=== PATIENT | female | born 1995 | race American Indian/Alaskan Native ===

== ENCOUNTER 2017-11-24 16:26 | Emergency (ER) | payer MEDICAID ==
[2017-11-24 16:31] VITALS: BP 110/79
[2017-11-24 17:16] LABS: Bilirubin,Urine NEG (Negative); Blood,Urine NEG (Negative); Color,Urine Yellow (Yellow); Mucus,Urine FEW /HPF; Protein,Urine <15 mg/dL mg/dL (Negative); Urobilinogen,Urine < 2.0 mg/dL (<2.0)
--- NOTE | 2017-11-24 20:16 | Emergency Department Report ---
ED N/V/D HPI - General Chief complaint: Nausea/Vomiting/Diarrhea Stated complaint: FLU SX Time Seen by Provider: 11/24/17 20:07 Source: patient Mode of arrival: Ambulatory Limitations: No Limitations - History of Present Illness Initial comments: Patient reports nausea vomiting and diarrhea 5 days. She says she had 2 episode of vomiting today and 2 episodes of diarrhea stool. She cannot link her symptoms to any thing that she ate or drank. She reports fever and chills. Body ache at 6 out of 10, achy and worse with movement better with rest. Denies taking any medication. She states that she is able to tolerate some liquids. Denies any abdominal pain, vaginal bleeding or discharge. Denies any back pain. Denies any urinary burning, frequency or urgency. Patient reports she smokes marijuana with questioning in triage but when asked she says that her nausea vomiting and diarrhea is not related to symptoms he can she did not have any marijuana when symptoms started. MD complaint: nausea, vomiting, diarrhea, other (body ache) Onset/Timin -: days(s) Description of Vomiting: food contents Description of Diarrhea: water Associated Abdominal Pain: No Radiation: none Severity: moderate Pain Scale: 6 (generalized) Quality: aching Consistency: constant Improves with: rest Worsens with: eating Context: other (unknown) Associated Symptoms: myalgias, fever/chills, loss of appetite, malaise, nausea/ vomiting. denies: chest pain, cough, diaphoresis, headaches, rash, dysuria, shortness of breath, syncope, weakness - Related Data Previous Rx's Medication Instructions Recorded Last Taken Type Acetaminophen [Non-Aspirin Extra 500 mg PO Q6H PRN #12 tablet 11/24/17 Unknown Rx Strength] Dicyclomine [Bentyl] 20 mg PO QID 3 Days #12 tablet 11/24/17 Unknown Rx Ondansetron [Zofran Odt] 4 mg PO Q8H PRN #12 tab.rapdis 11/24/17 Unknown Rx Allergies Allergy/AdvReac Type Severity Reaction Status Date / Time No Known Allergies Allergy Unverified 11/24/17 16:31 ED Review of Systems ROS: Stated complaint: FLU SX Other details as noted in HPI Comment: All other systems reviewed and negative Constitutional: chills, fever, malaise Eyes: denies: eye pain, eye discharge ENT: denies: ear pain, throat pain, dental pain, congestion Respiratory: no symptoms reported Cardiovascular: denies: chest pain, palpitations, dyspnea on exertion, edema, syncope, paroxysmal nocturnal dyspnea Gastrointestinal: nausea, vomiting, diarrhea. denies: abdominal pain, constipation, hematemesis, melena, hematochezia Genitourinary: denies: urgency, dysuria, frequency, hematuria, discharge, abnormal menses Musculoskeletal: myalgia. denies: back pain, joint swelling, arthralgia Skin: denies: rash Neurological: denies: headache, numbness, paresthesias, confusion, abnormal gait , vertigo ED Past Medical Hx - Past Medical History Previous Medical History?: No - Surgical History Past Surgical History?: No - Family History Family history: no significant - Social History Smoking Status: Never Smoker Substance Use Type: Marijuana - Medications Home Medications: Home Medications Medication Instructions Recorded Confirmed Last Taken Type Acetaminophen [Non-Aspirin Extra 500 mg PO Q6H PRN #12 tablet 11/24/17 Unknown Rx Strength] Dicyclomine [Bentyl] 20 mg PO QID 3 Days #12 tablet 11/24/17 Unknown Rx Ondansetron [Zofran Odt] 4 mg PO Q8H PRN #12 tab.rapdis 11/24/17 Unknown Rx ED Physical Exam - General Limitations: No Limitations General appearance: alert, in no apparent distress - Head Head exam: Present: atraumatic, normocephalic, normal inspection, other (normal exam) - Eye Eye exam: Present: normal appearance, PERRL, EOMI. Absent: scleral icterus, conjunctival injection, nystagmus Pupils: Present: normal accommodation - ENT ENT exam: Present: normal exam, normal orophraynx, mucous membranes moist, TM's normal bilaterally, normal external ear exam - Neck Neck exam: Present: normal inspection, full ROM, other (no C-spine tenderness). Absent: tenderness, meningismus, lymphadenopathy, thyromegaly - Respiratory Respiratory exam: Present: normal lung sounds bilaterally. Absent: respiratory distress, chest wall tenderness, accessory muscle use - Cardiovascular Cardiovascular Exam: Present: regular rate, normal rhythm, normal heart sounds - GI/Abdominal GI/Abdominal exam: Present: soft, normal bowel sounds. Absent: distended, tenderness, guarding, rebound, rigid, organomegaly, mass, bruit, pulsatile mass , hernia - Extremities Exam Extremities exam: Present: normal inspection, full ROM, normal capillary refill , other (no clubbing, cyanosis or edema. +2 pulses to all extremities and no neurovascular compromise). Absent: tenderness, pedal edema, joint swelling, calf tenderness - Back Exam Back exam: Present: normal inspection, full ROM, other (ambulates without any difficulties). Absent: tenderness, CVA tenderness (R), CVA tenderness (L), muscle spasm, paraspinal tenderness, vertebral tenderness, rash noted - Neurological Exam Neurological exam: Present: alert, oriented X3, normal gait, reflexes normal. Absent: motor sensory deficit - Psychiatric Psychiatric exam: Present: normal affect, normal mood - Skin Skin exam: Present: warm, dry, intact, normal color. Absent: rash ED Course Vital Signs 11/24/17 16:28 Temperature 99.1 F Pulse Rate 100 H Respiratory 16 Rate Blood Pressure 110/79 O2 Sat by Pulse 99 Oximetry - Reevaluation(s) Reevaluation #1: 11/24/17 21:00 Patient received Tylenol 975 mg by mouth for fever, Toradol 30 mg IV for body ache, Reglan 10 mg IV for nausea, Zofran 4 mg ODT and normal saline 1 L IV bolus and emergency room. Reevaluation #2: 11/24/17 21:55 Patient reports that she is feeling better. Mercer screen is negative and she is poorly hydrated and tolerated 2 cups of cranberry juice without any difficulties. ED Medical Decision Making - Lab Data Result diagrams: 11/24/17 20:34 11/24/17 20:34 Temp Pulse Resp BP Pulse Ox 99.1 F 100 H 16 110/79 99 11/24/17 16:28 11/24/17 16:28 11/24/17 16:28 11/24/17 16:28 11/24/17 16:28 Lab Results 11/24/17 11/24/17 11/24/17 Range/Units 20:34 20:34 20:34 WBC 7.9 (4.5-11.0) K/mm3 RBC 4.74 (3.65-5.03) M/mm3 Hgb 12.3 (10.1-14.3) gm/dl Hct 38.9 (30.3-42.9) % MCV 82 (79-97) fl MCH 26 L (28-32) pg MCHC 32 (30-34) % RDW 16.4 H (13.2-15.2) % Plt Count 269 (140-440) K/mm3 Lymph % (Auto) 18.8 (13.4-35.0) % Mercer % (Auto) 11.6 H (0.0-7.3) % Eos % (Auto) 0.5 (0.0-4.3) % Baso % (Auto) 0.4 (0.0-1.8) % Lymph # 1.5 (1.2-5.4) K/mm3 Mercer # 0.9 H (0.0-0.8) K/mm3 Eos # 0.0 (0.0-0.4) K/mm3 Baso # 0.0 (0.0-0.1) K/mm3 Seg Neutrophils % 68.7 (40.0-70.0) % Seg Neutrophils # 5.4 (1.8-7.7) K/mm3 Sodium 139 (137-145) mmol/L Potassium 3.9 (3.6-5.0) mmol/L Chloride 99.4 (98-107) mmol/L Carbon Dioxide 23 (22-30) mmol/L Anion Gap 21 mmol/L BUN 7 (7-17) mg/dL Creatinine 0.7 (0.7-1.2) mg/dL Estimated GFR > 60 ml/min BUN/Creatinine Ratio 10 % Glucose 93 (65-100) mg/dL Calcium 8.8 (8.4-10.2) mg/dL Total Bilirubin 0.50 (0.1-1.2) mg/dL Direct Bilirubin < 0.2 (0-0.2) mg/dL Indirect Bilirubin 0.3 mg/dL AST 14 (5-40) units/L ALT 7 (7-56) units/L Alkaline Phosphatase 86 (35-129) units/L Total Protein 7.9 (6.3-8.2) g/dL Albumin 4.1 (3.9-5) g/dL Albumin/Globulin Ratio 1.1 % Lipase 16 (13-60) units/L HCG, Qual Negative (Negative) Urine Color (Yellow) Urine Turbidity (Clear) Urine pH (5.0-7.0) Ur Specific [place] (1.003-1.030) Urine Protein (Negative) mg/dL Urine Glucose (UA) (Negative) mg/dL Urine Ketones (Negative) mg/dL Urine Blood (Negative) Urine Nitrite (Negative) Urine Bilirubin (Negative) Urine Urobilinogen (<2.0) mg/dL Ur Leukocyte Esterase (Negative) Urine WBC (Auto) (0.0-6.0) /HPF Urine RBC (Auto) (0.0-6.0) /HPF U Epithel Cells (Auto) (0-13.0) /HPF Urine Mucus /HPF Monoscreen (Negative) 11/24/17 11/24/17 Range/Units 20:34 Unknown WBC (4.5-11.0) K/mm3 RBC (3.65-5.03) M/mm3 Hgb (10.1-14.3) gm/dl Hct (30.3-42.9) % MCV (79-97) fl MCH (28-32) pg MCHC (30-34) % RDW (13.2-15.2) % Plt Count (140-440) K/mm3 Lymph % (Auto) (13.4-35.0) % Mercer % (Auto) (0.0-7.3) % Eos % (Auto) (0.0-4.3) % Baso % (Auto) (0.0-1.8) % Lymph # (1.2-5.4) K/mm3 Mercer # (0.0-0.8) K/mm3 Eos # (0.0-0.4) K/mm3 Baso # (0.0-0.1) K/mm3 Seg Neutrophils % (40.0-70.0) % Seg Neutrophils # (1.8-7.7) K/mm3 Sodium (137-145) mmol/L Potassium (3.6-5.0) mmol/L Chloride (98-107) mmol/L Carbon Dioxide (22-30) mmol/L Anion Gap mmol/L BUN (7-17) mg/dL Creatinine (0.7-1.2) mg/dL Estimated GFR ml/min BUN/Creatinine Ratio % Glucose (65-100) mg/dL Calcium (8.4-10.2) mg/dL Total Bilirubin (0.1-1.2) mg/dL Direct Bilirubin (0-0.2) mg/dL Indirect Bilirubin mg/dL AST (5-40) units/L ALT (7-56) units/L Alkaline Phosphatase (35-129) units/L Total Protein (6.3-8.2) g/dL Albumin (3.9-5) g/dL Albumin/Globulin Ratio % Lipase (13-60) units/L HCG, Qual (Negative) Urine Color Yellow (Yellow) Urine Turbidity Clear (Clear) Urine pH 6.0 (5.0-7.0) Ur Specific [place] 1.012 (1.003-1.030) Urine Protein <15 mg/dl (Negative) mg/dL Urine Glucose (UA) Neg (Negative) mg/dL Urine Ketones 20 (Negative) mg/dL Urine Blood Neg (Negative) Urine Nitrite Neg (Negative) Urine Bilirubin Neg (Negative) Urine Urobilinogen < 2.0 (<2.0) mg/dL Ur Leukocyte Esterase Sm (Negative) Urine WBC (Auto) 5.0 (0.0-6.0) /HPF Urine RBC (Auto) 2.0 (0.0-6.0) /HPF U Epithel Cells (Auto) 10.0 (0-13.0) /HPF Urine Mucus Few /HPF Monoscreen Negative (Negative) Urine culture pending - Medical Decision Making ED course: Pt report nausea vomiting and diarrhea 5 days. She reports she smokes more Lindsay but denies any marijuana in the last 5 days or prior to that. Patient found to have acute nausea and vomiting, diarrhea unknown cause. Her lab work are stable except she has leukocyte Estrace in her urine but not any urinary symptoms. She received Reglan 10 mg IV and Zofran 4 g ODT to manage nausea, 1 L of normal saline IV and was orally challenged after without any nausea vomiting or diarrhea. She received Toradol 30 mg IV for pain and Tylenol 975 mg by mouth for fever. Mercer screen is also negative. Please refer to laboratory section for details plan CBC, chemistry and urinalysis. Urine culture sent and pending. I discussed the patient and that she has gastroenteritis which is an inflammation of her stomach lining and I will put her on medication to include nausea medication and medication for stomach upset and also to help with her body aches. Patient voiced understanding in and she felt better after treatment. Discharged home to follow-up with her primary care physician in 2 days and I told her she does not have a primary care physician she needs to follow up at this [facility]. She was given prescription for Bentyl, Zofran and Tylenol. Critical care attestation.: If time is entered above; I have spent that time in minutes in the direct care of this critically ill patient, excluding procedure time. ED Disposition Clinical Impression: Nausea vomiting and diarrhea, Body aches Fever Qualifiers: Fever type: unspecified Qualified Code(s): R50.9 - Fever, unspecified Disposition: DC- TO HOME OR SELFCARE Is pt being admited?: No Does the pt Need Aspirin: No Condition: Stable Instructions: Acute Nausea and Vomiting (ED), Acute Diarrhea (ED), Gastroenteritis (ED), Nutrition Tips for Relief of Diarrhea (ED), Musculoskeletal Pain (ED), Fever in Adults (ED) Additional Instructions: Please take medication as prescribed Tylenol every 6 hours this will help with fever. Take every 6 hours 2 days and then as needed Bentyl and Zofran will help with stomach upset Please increase her fluid intake to 2-3 L of water daily Follow up with primary care as discussed in 2 days and return to the emergency room if his symptoms worsen before primary care visit Prescriptions: Acetaminophen [Non-Aspirin Extra Strength] 500 mg PO Q6H PRN #12 tablet PRN Reason: fever and or body ache Dicyclomine [Bentyl] 20 mg PO QID 3 Days #12 tablet Ondansetron [Zofran Odt] 4 mg PO Q8H PRN #12 tab.rapdis PRN Reason: Nausea And Vomiting Referrals: [facility] [Outside] - 11/26/17 Forms: Work/School Release Form(ED)
[2017-11-24] MEDS ORDERED: REGLAN IV ONE (20:17)
[2017-11-24] MEDS ORDERED: NACL 0.9% 1000 ML 1,000 ML IV ONE (20:17)
[2017-11-24] MEDS ORDERED: ZOFRAN ODT PO ONE (20:17)
[2017-11-24] MEDS ORDERED: TORADOL IV ONE (20:19)
[2017-11-24] MEDS ORDERED: TYLENOL PO ONE (20:19)
[2017-11-24 20:48] LABS: Basophils % (Auto) 0.4 % (0.0-1.8); Eosinophils % (Auto) 0.5 % (0.0-4.3); Hematocrit 38.9 % (30.3-42.9); Hemoglobin 12.3 gm/dl (10.1-14.3); Lymphocytes # (Auto) 1.5 K/mm3 (1.2-5.4); Lymphocytes % (Auto) 18.8 % (13.4-35.0); Mean Corpuscular HGB Conc 32 % (30-34); Mean Corpuscular Hemoglobin 26 pg (28-32); Mean Corpuscular Volume 82 fl (79-97); Monocytes # (Auto) 0.9 K/mm3 (0.0-0.8); Monocytes % (Auto) 11.6 % (0.0-7.3); Platelet Count 269 K/mm3 (140-440); Red Blood Count 4.74 M/mm3 (3.65-5.03); Red Cell Distribution Width 16.4 % (13.2-15.2)
[2017-11-24 21:01] LABS: Alanine Aminotransferase 7 units/L (7-56); Albumin 4.1 g/dL (3.9-5); BUN/Creatinine Ratio 10; Blood Urea Nitrogen 7 mg/dL (7-17); Calcium 8.8 mg/dL (8.4-10.2); Hemolysis Index 3; Lipase 16 units/L (13-60)
[2017-11-24 21:11] LABS: Bilirubin,Direct < 0.2 mg/dL (0-0.2)
== END 2017-11-24 22:35 | disposition home or self-care (01) ==
LOC: ED 16:26
DX: R11.2 Nausea with vomiting, unspecified (principal); R19.7 Diarrhea, unspecified
CPT/HCPCS: 36415; 80048; 80074; 81001; 83690; 84703; 85025; 86308; 87076; 87086; 87186; 96361; 96374; 96375; 99283; J1885; J2765; J7030; Q0162

== ENCOUNTER 2022-03-21 19:38 | Emergency (ER) | payer MEDICAID ==
[2022-03-21] MEDS ORDERED: ACETAMINOPHEN 325 MG TAB PO ONE ×2 (19:43→23:48)
[2022-03-21] MEDS ORDERED: IBUPROFEN 600 MG TAB PO ONE (23:48)
[2022-03-22 01:27] LABS: Bilirubin,Urine Negative (Negative); Blood,Urine Negative (Negative); Color,Urine Colorless (Yellow); Protein,Urine <15 mg/dL mg/dL (Negative); Urobilinogen,Urine 0.2 mg/dL (<2.0)
[2022-03-22 01:37] LABS: Bacteria,Urine 1+ /HPF (Negative); HCG Qualitative,Urine Negative (Negative)
--- NOTE | 2022-03-22 02:20 | XRay Report ---
XR chest routine 2V INDICATION / CLINICAL INFORMATION: cough. COMPARISON: None available. FINDINGS: SUPPORT DEVICES: None. HEART /PULMONARY VASCULATURE: No significant abnormality. LUNGS / PLEURA: No significant pulmonary or pleural abnormality. No pneumothorax. ADDITIONAL FINDINGS: No significant additional findings. IMPRESSION: 1. No acute findings. Signer Name: Dilip Bennett MD Signed: 03/22/2022 2:16 AM Workstation Name: [id number]
--- NOTE | 2022-03-22 02:52 | Emergency Department Report ---
ED General Adult HPI - General Chief complaint: Pain General Stated complaint: BODY ACHES/CHILLS Source: patient Mode of arrival: Stretcher Limitations: No Limitations - History of Present Illness Initial comments: Patient is a 26-year-old -Bangl[place] female with no past medical history presents to the ED with complaint of acute onset persistent diffuse body aches and pains, mild dry cough, low back pain, urinary frequency and urgency for the last 2 days. Patient states that she has also had subjective fever and chills. Patient states that she previously had similar symptoms and was diagnosed with pneumonia and UTI. Patient states that she has not been exposed to anyone with COVID-19 viral infection. Patient denies dizziness, syncope, chest pain, shortness of breath, nausea and vomiting, diarrhea, dysuria, vaginal bleeding, vaginal discharge, nasal and sinus congestion or abdominal pain. MD Complaint: Diffuse body aches and pains, low back pain, mild dry cough, fever, chills -: Sudden, days(s) (2) Location: head, back Radiation: non-radiation Severity scale (0 -10): 6 Quality: aching, sharp Consistency: constant Improves with: none Worsens with: none Associated Symptoms: denies other symptoms, cough, fever/chills, headaches, loss of appetite, malaise. denies: confusion, chest pain, diaphoresis, naus ea/vomiting, rash, seizure, shortness of breath, syncope, weakness, other Treatments Prior to Arrival: none - Related Data Previous Rx's Medication Instructions Recorded Last Taken Type Acetaminophen [Non-Aspirin Extra 500 mg PO Q6H PRN #12 tablet 11/24/17 Unknown Rx Strength] Dicyclomine [Bentyl] 20 mg PO QID 3 Days #12 tablet 11/24/17 Unknown Rx Ondansetron [Zofran Odt] 4 mg PO Q8H PRN #12 tab.rapdis 11/24/17 Unknown Rx Acetaminophen [Tylenol] 500 mg PO Q6HR PRN #30 tablet 03/22/22 Unknown Rx Ibuprofen [Motrin] 800 mg PO Q8HR PRN #30 tablet 03/22/22 Unknown Rx cephALEXin [Keflex] 500 mg PO Q8HR #30 cap 03/22/22 Unknown Rx Allergies Allergy/AdvReac Type Severity Reaction Status Date / Time No Known Allergies Allergy Unverified 11/24/17 16:31 ED Review of Systems ROS: Stated complaint: BODY ACHES/CHILLS Other details as noted in HPI Constitutional: chills, fever, malaise Eyes: denies: eye pain, eye discharge, vision change ENT: denies: ear pain, throat pain, dental pain, hearing loss, congestion Respiratory: cough. denies: shortness of breath, wheezing Cardiovascular: denies: chest pain, palpitations Endocrine: no symptoms reported Gastrointestinal: denies: abdominal pain, nausea, diarrhea Genitourinary: denies: urgency, dysuria, frequency, hematuria, discharge, abnormal menses, dyspareunia Musculoskeletal: back pain, arthralgia, myalgia. denies: joint swelling Skin: denies: rash, lesions Neurological: headache. denies: weakness, paresthesias Psychiatric: denies: anxiety, depression Hematological/Lymphatic: denies: easy bleeding, easy bruising ED Past Medical Hx - Past Medical History Previous Medical History?: Yes Additional medical history: Anemia - Surgical History Past Surgical History?: No - Social History Smoking Status: Never Smoker Substance Use Type: None - Medications Home Medications: Home Medications Medication Instructions Recorded Confirmed Last Taken Type Acetaminophen [Non-Aspirin Extra 500 mg PO Q6H PRN #12 tablet 11/24/17 Unknown Rx Strength] Dicyclomine [Bentyl] 20 mg PO QID 3 Days #12 tablet 11/24/17 Unknown Rx Ondansetron [Zofran Odt] 4 mg PO Q8H PRN #12 tab.rapdis 11/24/17 Unknown Rx Acetaminophen [Tylenol] 500 mg PO Q6HR PRN #30 tablet 03/22/22 Unknown Rx Ibuprofen [Motrin] 800 mg PO Q8HR PRN #30 tablet 03/22/22 Unknown Rx cephALEXin [Keflex] 500 mg PO Q8HR #30 cap 03/22/22 Unknown Rx ED Physical Exam - General Limitations: No Limitations General appearance: alert, in no apparent distress - Head Head exam: Present: atraumatic, normocephalic, normal inspection - Eye Eye exam: Present: normal appearance, PERRL, EOMI Pupils: Present: normal accommodation - ENT ENT exam: Present: normal exam, normal orophraynx, mucous membranes moist, TM's normal bilaterally, normal external ear exam - Neck Neck exam: Present: normal inspection, full ROM - Respiratory Respiratory exam: Present: normal lung sounds bilaterally. Absent: respiratory distress, wheezes, rales, rhonchi, chest wall tenderness, accessory muscle use, decreased breath sounds, prolonged expiratory - Cardiovascular Cardiovascular Exam: Present: regular rate, normal rhythm, normal heart sounds. Absent: systolic murmur, diastolic murmur, rubs, gallop - GI/Abdominal GI/Abdominal exam: Present: soft, normal bowel sounds. Absent: tenderness, guarding, rebound, hyperactive bowel sounds, hypoactive bowel sounds, organomegaly, mass - Extremities Exam Extremities exam: Present: normal inspection, full ROM, normal capillary refill. Absent: tenderness, pedal edema, joint swelling, calf tenderness - Back Exam Back exam: Present: normal inspection, full ROM. Absent: tenderness, CVA tenderness (R), CVA tenderness (L), muscle spasm, paraspinal tenderness, vertebral tenderness - Neurological Exam Neurological exam: Present: alert, oriented X3, CN II-XII intact, normal gait, reflexes normal - Psychiatric Psychiatric exam: Present: normal affect, normal mood - Skin Skin exam: Present: warm, dry, intact, normal color. Absent: rash ED Course Vital Signs 03/21/22 19:39 Temperature 98 F Pulse Rate 94 H Respiratory 18 Rate Blood Pressure 113/73 O2 Sat by Pulse 100 Oximetry ED Medical Decision Making - Radiology Data Radiology results: report reviewed, [place] [address] XRay Report Signed Patient: CATA DELGADO MR#: [id number] : 1995 Acct:[id number] Age/Sex: 26 / F ADM Date: 03/21/22 Loc: ED Attending Dr: Ordering Physician: SNEHA ISAACS Date of Service: 03/21/22 Procedure(s): XR chest routine 2V Accession Number(s): [id number] cc: SNEHA ISAACS Fluoro Time In Minutes: XR chest routine 2V INDICATION / CLINICAL INFORMATION: cough. COMPARISON: None available. FINDINGS: SUPPORT DEVICES: None. HEART /PULMONARY VASCULATURE: No significant abnormality. LUNGS / PLEURA: No significant pulmonary or pleural abnormality. No pneumothorax. ADDITIONAL FINDINGS: No significant additional findings. IMPRESSION: 1. No acute findings. Signer Name: Geo Bennett MD Signed: 03/22/2022 2:16 AM Workstation Name: [id number] Transcribed By: MARGARITO Dictated By: GEO BENNETT MD Electronically Authenticated By: GEO BENNETT MD Signed Date/Time: 03/22/22215 DD/ 5 TD/TT: - Medical Decision Making This is a 26-year-old -B[place] female with no past medical history presents to the ED with complaint of acute onset persistent diffuse body aches and pains, mild dry cough, low back pain, urinary frequency and urgency for the last 2 days. Patient states that she has also had subjective fever and chills. Patient states that she previously had similar symptoms and was diagnosed with pneumonia and UTI. Patient states that she has not been exposed to anyone with COVID-19 viral infection. In the ED, patient is alert and oriented x3 and is not in any distress. Patient was treated for pain in the ED. Urinalysis is unremarkable except for mild urinary tract infection. Chest x-ray showed no acute cardiopulmonary abnormalities or pneumonitis. Patient was therefore discharged home on medications and advised to follow-up with her primary care physician in 7 to 10 days for reevaluation. Patient was also advised to get tested for COVID-19 viral infection in any of the outpatient facilities. Patient was advised to return to the ED immediately if symptoms get worse. - Differential Diagnosis URI; Influenza, UTI; Pneumonia; Covid-19 Critical care attestation.: If time is entered above; I have spent that time in minutes in the direct care of this critically ill patient, excluding procedure time. ED Disposition Clinical Impression: Acute upper respiratory infection, Viral upper respiratory tract infection with cough, Suspected 2019 novel coronavirus infection, Acute urinary tract infection Disposition: HOME / SELF CARE / HOMELESS Is pt being admited?: No Does the pt Need Aspirin: No Condition: Stable Instructions: Upper Respiratory Infection, Adult, [id number], Viral Respiratory Infection, [id number], Urinary Tract Infection, Adult, [id number], COVID-19 Frequently Asked Questions, COVID-19 Additional Instructions: Chest x-ray showed no acute cardiopulmonary abnormalities or pneumonitis. Urinalysis showed mild urinary tract infection. Therefore it is advisable that you get tested for COVID-19 viral infection as her symptoms are likely due to COVID-19 viral infection. If positive, self quarantine at home for 5 days while taking medications. Otherwise follow-up with your primary care physician in 7 to 10 days for reevaluation or return to the ED immediately if symptoms get worse. Prescriptions: Acetaminophen [Tylenol] 500 mg PO Q6HR PRN #30 tablet PRN Reason: Pain , Severe (7-10) cephALEXin [Keflex] 500 mg PO Q8HR #30 cap Ibuprofen [Motrin] 800 mg PO Q8HR PRN #30 tablet PRN Reason: Pain , Severe (7-10) Referrals: SATYA SINGH MD [Primary Care Provider] - 7-10 days Time of Disposition: 02:55 Print Language: PRYDEINIG
[2022-03-22 05:02] VITALS: BP 110/78
== END 2022-03-22 04:52 | disposition home or self-care (01) ==
LOC: ED 19:38
DX: J06.9 Acute upper respiratory infection, unspecified (principal); R05.9 Cough, unspecified; Z20.822 Contact with and (suspected) exposure to COVID-19; N39.0 Urinary tract infection, site not specified
CPT/HCPCS: 71046; 81001; 81025; 99284